=== PATIENT | male | born 1975 | race Caucasian/White ===

== ENCOUNTER 2018-11-20 12:14 | Inpatient (IN) | payer BC ==
[~2018-11-20] VITALS: Ht 167.6 cm; Wt 75.9 kg
[~2018-11-20 12:14] MED LIST: ALKA PO; IBUP-1982 PO
--- NOTE | 2018-11-20 14:04 | ERD ---
ER Documentation Chief Complaint Chief Complaint LOWER ABD PAIN X 1 DAY. SENT BY PCP HPI The patient is a 43-year-old male, presenting to the ER because of lower abdominal pain for the last 2 days, more the right than the left. He denies similar symptoms previously, denies fever, chills, neck pain, chest pain, dyspnea, vomiting, dysuria, diarrhea. He was seen in the clinic was sent him to the hospital. He does not smoke nor drink nor does illicit drug Past medical/surgical history: None ROS All systems reviewed and are negative except as per history of present illness. Medications Home Meds Reported Medications Aspirin ([place]us[place]) 1 Tab Tabef, 1 TAB PO DAILY, TAB 11/20/18 Ibuprofen* (Ibuprofen*) 200 Mg Capsule, 200 MG PO NEEDED, CAP 11/20/18 Allergies Allergies: Coded Allergies: No Known Drug Allergies (Verified Allergy, Unknown, 11/20/18) Physical Exam Vitals Vital Signs Date Temp Pulse Resp B/P (MAP) Pulse Ox O2 O2 Flow FiO2 Time Delivery Rate 11/20/18 88 18 106/79 100 Room Air 18:33 (88) 11/20/18 98.5 89 17 131/90 100 Room Air 16:05 (104) 11/20/18 98.5 89 16 137/91 97 12:28 (106) Physical Exam Const: No acute distress. Head: Atraumatic. Eyes: Normal Conjunctiva. ENT: Normal External Ears, Nose and Mouth. Neck: Full range of motion. No meningismus. Resp: Clear to auscultation bilaterally. Cardio: Regular rate and rhythm. Abd: Soft, non distended, normal bowel sounds, moderate RLQ abdominal/ rebound tenderness, no guarding no rigidity Skin: No petechiae or rashes. Back: No midline or flank tenderness. Ext: No cyanosis, or edema. Neur: Awake and alert. No focal deficit Psych: Normal Mood and Affect. Result Diagram: 11/20/18 1413 11/20/18 1413 Results 24 hrs Laboratory Tests Test 11/20/18 14:13 11/20/18 14:32 White Blood Count 11.9 10^3/ul Red Blood Count 5.93 10^6/ul Hemoglobin 16.3 g/dl Hematocrit 49.0 % Mean Corpuscular Volume 82.6 fl Mean Corpuscular Hemoglobin 27.5 pg Mean Corpuscular Hemoglobin Concent 33.3 g/dl Red Cell Distribution Width 12.9 % Platelet Count 209 10^3/UL Mean Platelet Volume 10.9 fl Immature Granulocytes % 0.300 % Neutrophils % 72.4 % Lymphocytes % 18.3 % Monocytes % 8.3 % Eosinophils % 0.4 % Basophils % 0.3 % Nucleated Red Blood Cells % 0.0 /100WBC Immature Granulocytes # 0.030 10^3/ul Neutrophils # 8.6 10^3/ul Lymphocytes # 2.2 10^3/ul Monocytes # 1.0 10^3/ul Eosinophils # 0.1 10^3/ul Basophils # 0.0 10^3/ul Nucleated Red Blood Cells # 0.0 10^3/ul Sodium Level 139 mmol/L Potassium Level 3.9 mmol/L Chloride Level 105 mmol/L Carbon Dioxide Level 26 mmol/L Anion Gap 8 Blood Urea Nitrogen 14 mg/dl Creatinine 0.79 mg/dl Est Glomerular Filtrat Rate mL/min > 60 mL/min Glucose Level 98 mg/dl Calcium Level 9.6 mg/dl Total Bilirubin 1.8 mg/dl Direct Bilirubin 0.00 mg/dl Indirect Bilirubin 1.8 mg/dl Aspartate Amino Transf (AST/SGOT) 25 IU/L Alanine Aminotransferase (ALT/SGPT) 31 IU/L Alkaline Phosphatase 80 IU/L Total Protein 8.3 g/dl Albumin 4.7 g/dl Globulin 3.60 g/dl Albumin/Globulin Ratio 1.30 Lipase 46 U/L Bedside Urine pH (LAB) 7.5 Bedside Urine Protein (LAB) Negative Bedside Urine Glucose (UA) Negative Bedside Urine Ketones (LAB) Negative Bedside Urine Blood Negative Bedside Urine Nitrite (LAB) Negative Bedside Urine Leukocyte Esterase (L Negative Current Medications Medications Dose Sig/Leanne Start Time Status Last (Trade) Ordered Route PRN Stop Time Admin Dose Reason Admin Sodium 1,000 ml @ Q1H STAT 11/20/18 DC 11/20/18 Chloride 1,000 mls/hr IV 14:08 14:35 11/20/18 15:07 Ketorolac 30 mg ONCE STAT 11/20/18 DC 11/20/18 Tromethamine IV 14:08 14:35 (Toradol) 11/20/18 14:09 Piperacillin 100 ml @ ONCE ONCE 11/20/18 DC 8/12/19 Sod/ 200 mls/hr IVPB 15:00 15:15 Tazobactam 11/20/18 15:29 Sod Sodium 1,000 ml @ Q10H IV 11/20/18 11/20/18 Chloride 100 mls/hr 16:06 17:41 IV Flush 3 ml PER 11/20/18 (NS 3 ml) PROTOCOL IV 16:30 Ondansetron 4 mg Q6H PRN 11/20/18 HCl (Zofran IV 16:30 Inj) NAUSEA/VOMITI NG 650 mg Q6H PRN 11/20/18 Acetaminophen PO .PAIN 1-3 16:30 (Tylenol OR TEMP Tab) 1 tab Q6H PRN 11/20/18 Acetaminophen PO .MOD PAIN 16:30 / 4-6 Hydrocodone Bitart ([place] (5/325)) Morphine 2 mg Q4H PRN 11/20/18 Sulfate IV .SEVERE 16:30 (morphine) PAIN 7-10 Zolpidem 5 mg QHS PRN 11/20/18 Tartrate PO .INSOMNIA 16:30 (Ambien) Piperacillin 100 ml @ Q6H IVPB 11/20/18 Sod/ 200 mls/hr 21:00 Tazobactam Sod Procedures/[place] [id number] Radiology Main Line: [phone] DIAGNOSTIC IMAGING REPORT Patient: PEGGY MCKEE : 1975 Age: 43 Sex: M MR #: [id number] DOS: 11/20/18 1408 Ordering MD: DANIEL CHANDRA MD Location: E/R Room/Bed: PROCEDURE: CT abdomen and pelvis without contrast. CLINICAL INDICATION: Abdominal pain TECHNIQUE: CT scan of the abdomen and pelvis without contrast was performed on the [employer] volumetric [address] scanner at [facility]. The patient was scanned without intravenous contrast. 3-D coronal reformatted images were obtained from the axial source images. CTDI: 7.8 mGy DLP: 441 mGy-cm DICOM images are available. One or more of the following dose reduction techniques were utilized: 1.) Automated exposure control 2.) Adjustment of the mA +/- kV according to patient's size 3.) Use of iterative reconstruction technique. COMPARISON: None. FINDINGS: Limited evaluation of the lung bases are clear. No pleural effusion. The unenhanced liver, spleen, bilateral adrenal glands, pancreas, and gallbladder are normal-appearing. No biliary dilatation. The bilateral kidneys are normal-appearing without hydronephrosis or nephrolithiasis. The small large bowel are thin-walled and nondilated without evidence for obstruction. The appendix is enlarged and dilated with the moderate periappendiceal fat stranding consistent with acute uncomplicated appendicitis. No loculated fluid collections to suggest an abscess. No gross free air to suggest perforation. The urinary bladder is grossly normal. Abdominal aorta is normal in caliber without aneurysm. No suspicious osseous lesions. IMPRESSION: 1. Acute uncomplicated appendicitis. No abscess or free air. Above findings discussed with Dr. Daniel Chandra at approximately 03:00 p.m. on November 20, 2018. Physician Vincent Date Time Electronically viewed and signed by Julien Lopez Physician on 11/20/2018 15:01 ML/ CC: DANIEL CHANDRA MD [phone] MEDICAL MAKING DECISION: The patient is a 43-year-old male, presenting with acute appendicitis, treated with Toradol 30 mg IV for pain, 1 L normal saline for clinical dehydration, Zosyn IV for acute appendicitis with good response. The differential diagnoses considered include but are not limited to cholelithiasis, cholecystitis, choledocholithiasis, cholangitis, pancreatitis, hepatitis, gastritis, peptic ulcer disease, gastric ulcer, appendicitis, cystitis, diverticulitis, partial small bowel obstruction. Consultation: I notify the on-call surgeon Dr. Billingsley via [employer] at 3p Departure Diagnosis: Primary Impression: Appendicitis Comments I discussed the findings with the patient. I notified the patient with Dr. Reece at 3:20p via [employer], who was made aware of the lab, the treatment, the patient condition. The patient is admitted to [facility] Disclaimer: Inadvertent spelling and grammatical errors are likely due to EHR/dictation software use and do not reflect on the overall quality of patient care. Also, please note that the electronic time recorded on this note does not necessarily reflect the actual time of the patient encounter. DANIEL CHANDRA MD Nov 20, 2018 14:04
[2018-11-20] MEDS ORDERED: SOD CHLORIDE 0.9% 1,000 ML IV STA (14:08)
[2018-11-20] MEDS ORDERED: KETOROLAC 30 MG INJ IV STA (14:08)
[2018-11-20] MEDS ORDERED: PIPER-TAZO 3.375 GM IV (PMX) 100 ML IVPB ONE (15:00)
[2018-11-20] MEDS ORDERED: HYDROCODONE/APAP (5/325) TAB PO PRN (16:30)
[2018-11-20] MEDS ORDERED: ONDANSETRON 4 MG INJ IV PRN (16:30)
[2018-11-20] MEDS ORDERED: ZOLPIDEM 5 MG TAB PO PRN (16:30)
[2018-11-20] MEDS ORDERED: NACL 0.9% 3 ML SYG IV SCH (16:30)
[2018-11-20] MEDS ORDERED: morphine 2 MG INJ IV PRN (16:30)
--- NOTE | 2018-11-20 16:58 | HP ---
Date/Time of Note Date/Time of Note DATE: 11/20/18 TIME: 16:57 Assessment/Plan VTE Prophylaxis SCD applied (from Nsg): Yes Pharmacological prophylaxis: NA/contraindicated Pharm contraindication: surgical contra Lines/Catheters IV Catheter Type (from Nrs): Saline Lock Assessment/Plan Hospital Course 1. Acute appendicitis Surgery consultation obtained Zosyn IV N.p.o. Prophylaxis: SCDs Result Diagram: 11/20/18 1413 11/20/18 1413 Results 24hrs Laboratory Tests Test 11/20/18 14:13 11/20/18 14:32 White Blood Count 11.9 H Red Blood Count 5.93 Hemoglobin 16.3 Hematocrit 49.0 Mean Corpuscular Volume 82.6 Mean Corpuscular Hemoglobin 27.5 L Mean Corpuscular Hemoglobin Concent 33.3 Red Cell Distribution Width 12.9 Platelet Count 209 Mean Platelet Volume 10.9 H Immature Granulocytes % 0.300 Neutrophils % 72.4 Lymphocytes % 18.3 Monocytes % 8.3 Eosinophils % 0.4 Basophils % 0.3 Nucleated Red Blood Cells % 0.0 Immature Granulocytes # 0.030 Neutrophils # 8.6 H Lymphocytes # 2.2 Monocytes # 1.0 H Eosinophils # 0.1 Basophils # 0.0 Nucleated Red Blood Cells # 0.0 Sodium Level 139 Potassium Level 3.9 Chloride Level 105 Carbon Dioxide Level 26 Anion Gap 8 Blood Urea Nitrogen 14 Creatinine 0.79 Est Glomerular Filtrat Rate mL/min > 60 Glucose Level 98 Calcium Level 9.6 Total Bilirubin 1.8 H Direct Bilirubin 0.00 Indirect Bilirubin 1.8 H Aspartate Amino Transf (AST/SGOT) 25 Alanine Aminotransferase (ALT/SGPT) 31 Alkaline Phosphatase 80 Total Protein 8.3 H Albumin 4.7 Globulin 3.60 H Albumin/Globulin Ratio 1.30 Lipase 46 Bedside Urine pH (LAB) 7.5 Bedside Urine Protein (LAB) Negative Bedside Urine Glucose (UA) Negative Bedside Urine Ketones (LAB) Negative Bedside Urine Blood Negative Bedside Urine Nitrite (LAB) Negative Bedside Urine Leukocyte Esterase (L Negative HPI/ROS Admit Date/Time Admit Date/Time November 20, 2018 Hx of Present Illness Patient is a 43-year-old male with no medical history presents with right lower quadrant abdominal pain for the past 2 days. In the ER CT abdomen showed acute appendicitis. ROS Constitutional: no complaints, improved Eyes: no complaints ENT: no complaints Respiratory: no complaints Cardiovascular: no complaints Gastrointestinal: pain Genitourinary: no complaints Musculoskeletal: no complaints Skin: no complaints Neurologic: no complaints Endocrine: no complaints Lymphatic: no complaints Psychological: no complaints, nl mood/affect Immunologic: no complaints PMH/Family/Social Past Medical History Medical History: no pertinent history Medications Current Medications Sodium Chloride 1,000 ml @ 100 mls/hr Q10H IV ; Start 11/20/18 at 16:06 IV Flush (NS 3 ml) 3 ml PER PROTOCOL IV ; Start 11/20/18 at 16:30 Ondansetron HCl (Zofran Inj) 4 mg Q6H PRN IV NAUSEA/VOMITING; Start 11/20/18 at 16:30 Acetaminophen (Tylenol Tab) 650 mg Q6H PRN PO .PAIN 1-3 OR TEMP; Start 11/20/18 at 16:30 Acetaminophen/ Hydrocodone Bitart ([place] (5/325)) 1 tab Q6H PRN PO .MOD PAIN 4- 6; Start 11/20/18 at 16:30 Morphine Sulfate (morphine) 2 mg Q4H PRN IV .SEVERE PAIN 7-10; Start 11/20/18 at 16:30 Zolpidem Tartrate (Ambien) 5 mg QHS PRN PO .INSOMNIA; Start 11/20/18 at 16:30 Piperacillin Sod/ Tazobactam Sod 100 ml @ 200 mls/hr Q6H IVPB ; Start 11/20/18 at 21:00 Coded Allergies: No Known Drug Allergies (Verified Allergy, Unknown, 11/20/18) Past Surgical History Past Surgical Hx: no surgical history Family History Significant Family History: no pertinent family hx Social History Alcohol Use: rarely Smoking Status: Never smoker Drug Use: none Exam/Review of Systems Vital Signs Vitals Vital Signs Date Temp Pulse Resp B/P (MAP) Pulse Ox O2 O2 Flow FiO2 Time Delivery Rate 11/20/18 98.5 89 17 131/90 100 Room Air 16:05 (104) Exam Constitutional: alert, oriented Respiratory: clear to auscultation Cardiovascular: regular rate and rhythm Gastrointestinal: soft; No distended Musculoskeletal: nl extremities to inspection LINUS GOODSON Nov 20, 2018 16:58
[2018-11-20] MEDS: SOD CHLORIDE 0.9% 1,000 ML IV SCH (17:41)
[2018-11-20 20:30] VITALS: BP 126/84; PULSE 82; RESP 19
[2018-11-20 21:38] VITALS: Ht 167.6 cm; Wt 75.9 kg
[2018-11-20] MEDS: PIPER-TAZO 3.375 GM IV (PMX) 100 ML IVPB SCH (21:54)
[2018-11-21] VITALS (13 sets, daily range): BP systolic 109–155; BP diastolic 62–86; PULSE 78–126; RESP 11–21
[2018-11-21] MEDS: SOD CHLORIDE 0.9% 1,000 ML IV SCH ×4 (02:02→17:15)
[2018-11-21] MEDS: PIPER-TAZO 3.375 GM IV (PMX) 100 ML IVPB SCH ×4 (02:05→20:28)
--- NOTE | 2018-11-21 09:53 | CONS ---
Assessment/Plan Assessment/Plan Hospital Course (Demo Recall) 1. Appendicitis: -Discussed surgical options versus conservative treatment with patient, at this time awaiting patient decision -N.p.o. -IV antibiotics 2. Abdominal pain: -Pain management: -As above 3. Leukocytosis: Resolved -Monitor 4. Hyperbilirubinemia: Mostly indirect -Trend 5. Overweight BMI: 27 -diet and exercise optimization -encourage weight loss Thank you. Patient seen and examined in collaboration with Dr. Amarjit Billingsley. Consultation Date/Type/Reason Admit Date/Time November 20, 2018 Date of Consultation: Nov 21, 2018 Type of Consult Surgical Reason for Consultation abdominal pain, appendicitis Requesting Provider: LINUS GOODSON Date/Time of Note DATE: 11/21/18 TIME: 09:39 Hx of Present Illness Mike Abdi is a 43 yo man who presented to the ED with complaints of abdominal pain. Abdominal pain began on Tuesday predominantly in the right lower quadrant. Pain initially began as mild but eventually increased in strength until he sought help in the ED. No associated fevers, chills, congested cough, chest pain, palpitations, shortness of breath, nausea, vomiting, change in bowel or bladder habits, dysuria, skin changes. CT of the abdomen was obtained noting enlarged and dilated appendix with moderate periappendiceal fat stranding consistent with acute uncomplicated appendicitis. Laboratory findings significant for mild leukocytosis, now resolved. General surgery was asked to evaluate. 12 point ros was performed and is negative except as stated in hpi. Past Medical History overweight Home Meds Reported Medications Aspirin (Alexus[place]) 1 Tab Tabef, 1 TAB PO DAILY, TAB 11/20/18 Ibuprofen* (Ibuprofen*) 200 Mg Capsule, 200 MG PO NEEDED, CAP 11/20/18 Medications Current Medications Sodium Chloride 1,000 ml @ 100 mls/hr Q10H IV Last administered on 11/21/18at 02:31; Admin Dose 100 MLS/HR; Start 11/20/18 at 16:06 IV Flush (NS 3 ml) 3 ml PER PROTOCOL IV ; Start 11/20/18 at 16:30 Ondansetron HCl (Zofran Inj) 4 mg Q6H PRN IV NAUSEA/VOMITING; Start 11/20/18 at 16:30 Acetaminophen (Tylenol Tab) 650 mg Q6H PRN PO .PAIN 1-3 OR TEMP; Start 11/20/18 at 16:30 Acetaminophen/ Hydrocodone Bitart ([place] (5/325)) 1 tab Q6H PRN PO .MOD PAIN 4- 6; Start 11/20/18 at 16:30 Morphine Sulfate (morphine) 2 mg Q4H PRN IV .SEVERE PAIN 7-10; Start 11/20/18 at 16:30 Zolpidem Tartrate (Ambien) 5 mg QHS PRN PO .INSOMNIA; Start 11/20/18 at 16:30 Piperacillin Sod/ Tazobactam Sod 100 ml @ 200 mls/hr Q6H IVPB Last administered on 11/21/18at 09:37; Admin Dose 200 MLS/HR; Start 11/20/18 at 21:00 Allergies: Coded Allergies: No Known Drug Allergies (Verified Allergy, Unknown, 11/20/18) Past Surgical History Past Surgical Hx: no surgical history Family History Significant Family History: no pertinent family hx Social History Alcohol Use: rarely Smoking Status: Never smoker Drug Use: none Exam/Review of Systems Exam Vitals Vital Signs Date Temp Pulse Resp B/P (MAP) Pulse Ox O2 O2 Flow FiO2 Time Delivery Rate 11/21/18 98.0 78 17 113/62 96 09:24 (79) 11/20/18 Room Air 20:09 Intake and Output 11/20/18 11/20/18 11/21/18 1515:00 23:00 07:00 IntakeIntake Total 100 ml 1350 ml BalanceBalance 100 ml 1350 ml Constitutional: alert, oriented Psych: nl mood/affect; No anxiety Head: normocephalic, atraumatic Eyes: nl conjunctiva, EOMI, nl lids, nl sclera ENMT: nl external ears & nose, nl lips & teeth, mucosa pink and moist Neck: supple, non-tender Respiratory: normal air movement; No congested cough Cardiovascular: regular rate and rhythm, nl pulses Gastrointestinal: soft, tender (Minimal right lower quadrant); No distended Musculoskeletal: nl extremities to inspection, nl gait and stance Extremities: normal pulses Neurological: nl mental status, nl speech, nl strength Skin: nl turgor; No rash or lesions Lymph: nl lymph nodes Results Result Diagram: 11/21/18 0556 11/21/18 0556 Results 24hrs Laboratory Tests Test 11/20/18 14:13 11/20/18 14:32 11/21/18 05:56 White Blood Count 11.9 H 9.1 # Red Blood Count 5.93 5.36 Hemoglobin 16.3 15.0 Hematocrit 49.0 45.0 Mean Corpuscular Volume 82.6 84.0 Mean Corpuscular Hemoglobin 27.5 L 28.0 L Mean Corpuscular Hemoglobin Concent 33.3 33.3 Red Cell Distribution Width 12.9 12.8 Platelet Count 209 194 Mean Platelet Volume 10.9 H 11.3 H Immature Granulocytes % 0.300 0.200 Neutrophils % 72.4 63.5 Lymphocytes % 18.3 24.9 Monocytes % 8.3 9.8 Eosinophils % 0.4 1.2 Basophils % 0.3 0.4 Nucleated Red Blood Cells % 0.0 0.0 Immature Granulocytes # 0.030 0.020 Neutrophils # 8.6 H 5.8 Lymphocytes # 2.2 2.3 Monocytes # 1.0 H 0.9 Eosinophils # 0.1 0.1 Basophils # 0.0 0.0 Nucleated Red Blood Cells # 0.0 0.0 Sodium Level 139 139 Potassium Level 3.9 4.1 Chloride Level 105 108 Carbon Dioxide Level 26 22 Anion Gap 8 9 Blood Urea Nitrogen 14 17 Creatinine 0.79 1.00 Est Glomerular Filtrat Rate mL/min > 60 > 60 Glucose Level 98 76 Calcium Level 9.6 8.9 Total Bilirubin 1.8 H Direct Bilirubin 0.00 Indirect Bilirubin 1.8 H Aspartate Amino Transf (AST/SGOT) 25 Alanine Aminotransferase (ALT/SGPT) 31 Alkaline Phosphatase 80 Total Protein 8.3 H Albumin 4.7 Globulin 3.60 H Albumin/Globulin Ratio 1.30 Lipase 46 Bedside Urine pH (LAB) 7.5 Bedside Urine Protein (LAB) Negative Bedside Urine Glucose (UA) Negative Bedside Urine Ketones (LAB) Negative Bedside Urine Blood Negative Bedside Urine Nitrite (LAB) Negative Bedside Urine Leukocyte Esterase (L Negative Hemoglobin A1c 5.3 Phosphorus Level 3.0 Magnesium Level 2.0 Medications Medication Current Medications Sodium Chloride 1,000 ml @ 100 mls/hr Q10H IV Last administered on 11/21/18at 02:31; Admin Dose 100 MLS/HR; Start 11/20/18 at 16:06 IV Flush (NS 3 ml) 3 ml PER PROTOCOL IV ; Start 11/20/18 at 16:30 Ondansetron HCl (Zofran Inj) 4 mg Q6H PRN IV NAUSEA/VOMITING; Start 11/20/18 at 16:30 Acetaminophen (Tylenol Tab) 650 mg Q6H PRN PO .PAIN 1-3 OR TEMP; Start 11/20/18 at 16:30 Acetaminophen/ Hydrocodone Bitart ([place] (5/325)) 1 tab Q6H PRN PO .MOD PAIN 4- 6; Start 11/20/18 at 16:30 Morphine Sulfate (morphine) 2 mg Q4H PRN IV .SEVERE PAIN 7-10; Start 11/20/18 at 16:30 Zolpidem Tartrate (Ambien) 5 mg QHS PRN PO .INSOMNIA; Start 11/20/18 at 16:30 Piperacillin Sod/ Tazobactam Sod 100 ml @ 200 mls/hr Q6H IVPB Last administered on 11/21/18at 09:37; Admin Dose 200 MLS/HR; Start 11/20/18 at 21:00 CHRIS ORDONEZ NP Nov 21, 2018 09:50
--- NOTE | 2018-11-21 12:23 | PREAC ---
Date/Time of Note Date/Time of Note DATE: 11/21/18 TIME: 12:22 Anesthesia Eval and Record Evaluation Time Pre-Procedure Interview DATE: 11/21/18 TIME: 12:22 Age 43 Sex male NPO: 8 hrs Preoperative diagnosis appendicitis Planned procedure lap appy Past Medical History Past Medical History: Includes Cardio: Dyslipidemia Surgery & Anesthesia Issues No known issue Meds Anticoagulation: No Beta Alannah within 24 hr: No Reason Beta Alannah not given: Pt. not on B-Alannah Reported Medications Aspirin (Alexus-[place]) 1 Tab Tabef, 1 TAB PO DAILY, TAB 11/20/18 Ibuprofen* (Ibuprofen*) 200 Mg Capsule, 200 MG PO NEEDED, CAP 11/20/18 Current Medications Sodium Chloride 1,000 ml @ 100 mls/hr Q10H IV Last administered on 11/21/18at 02:31; Admin Dose 100 MLS/HR; Start 11/20/18 at 16:06 IV Flush (NS 3 ml) 3 ml PER PROTOCOL IV ; Start 11/20/18 at 16:30 Ondansetron HCl (Zofran Inj) 4 mg Q6H PRN IV NAUSEA/VOMITING; Start 11/20/18 at 16:30 Acetaminophen (Tylenol Tab) 650 mg Q6H PRN PO .PAIN 1-3 OR TEMP; Start 11/20/18 at 16:30 Acetaminophen/ Hydrocodone Bitart ([place] (5/325)) 1 tab Q6H PRN PO .MOD PAIN 4- 6; Start 11/20/18 at 16:30 Morphine Sulfate (morphine) 2 mg Q4H PRN IV .SEVERE PAIN 7-10; Start 11/20/18 at 16:30 Zolpidem Tartrate (Ambien) 5 mg QHS PRN PO .INSOMNIA; Start 11/20/18 at 16:30 Piperacillin Sod/ Tazobactam Sod 100 ml @ 200 mls/hr Q6H IVPB Last administered on 11/21/18at 09:37; Admin Dose 200 MLS/HR; Start 11/20/18 at 21:00 Meds reviewed: Yes Allergies Coded Allergies: No Known Drug Allergies (Verified Allergy, Unknown, 11/20/18) Allergies Reviewed: Yes Labs/Studies Labs Reviewed: Reviewed by anesthesiologist Result Diagram: 11/21/18 0556 11/21/18 0556 Laboratory Tests 11/21/18 05:56 test: N/A Pre-procedure Exam Last vitals Vital Signs Date Temp Pulse Resp B/P (MAP) Pulse Ox O2 O2 Flow FiO2 Time Delivery Rate 11/21/18 98.0 78 17 113/62 96 09:24 (79) 11/20/18 Room Air 20:09 Airway: Adequate mouth opening, Adequate thyromental dist Mallampati: Mallampati I Teeth: Normal Lung: Normal Heart: Normal ASA Physical Status ASA physical status: 2 Emergency: E Planned Anesthetic General/MAC: ETT Nerve block: TAP (bilateral) Pre-operative Attestations Prior to commencing anesthesia and surgery, the patient was re-evaluated, there was verification of: *The patient's identity *The results of appropriate recent lab work and preoperative vital signs *The above evaluation not changing prior to induction *Anesthetic plan, risk benefits, alternative and complications discussed with patient/family; questions answered; patient/family understands, accepts and wishes to proceed. SEAN CAVANAUGH CRNA Nov 21, 2018 12:23
[2018-11-21] MEDS ORDERED: LIDOCAINE 1% (MPF) 30 ML INJ ONE (15:08)
[2018-11-21] MEDS ORDERED: BUPIVACAINE 0.25%/EPI (SDV) 10 ML INJ ONE (15:08)
[2018-11-21] MEDS ORDERED: CEFAZOLIN 1 GM INJ ONE (15:20)
[2018-11-21] MEDS ORDERED: DESFLURANE 15 MIN ONE (15:20)
[2018-11-21] MEDS ORDERED: ROCURONIUM 50 MG INJ ONE (15:23)
[2018-11-21] MEDS ORDERED: PROPOFOL 20 ML ONE (15:23)
[2018-11-21] MEDS ORDERED: HYDROmorphONE 2 MG/ML SYG ONE (15:24)
--- NOTE | 2018-11-21 15:39 | PN ---
Date/Time of Note Date/Time of Note DATE: 11/21/18 TIME: 15:39 Assessment/Plan VTE Prophylaxis Risk score (from Ns)>0 risk: 3 SCD applied (from Ns): Yes Pharmacological prophylaxis: NA/contraindicated Pharm contraindication: surgical contra Lines/Catheters IV Catheter Type (from [facility]): Peripheral IV Assessment/Plan Hospital Course 1. Acute appendicitis Surgery consultation appreciated, surgery planned for today Zosyn IV N.p.o. Prophylaxis: SCDs DC planning: Anticipate DC home tomorrow Result Diagram: 11/21/18 0556 11/21/18 0556 Results 24hrs Laboratory Tests Test 11/21/18 05:56 White Blood Count 9.1 # Red Blood Count 5.36 Hemoglobin 15.0 Hematocrit 45.0 Mean Corpuscular Volume 84.0 Mean Corpuscular Hemoglobin 28.0 L Mean Corpuscular Hemoglobin Concent 33.3 Red Cell Distribution Width 12.8 Platelet Count 194 Mean Platelet Volume 11.3 H Immature Granulocytes % 0.200 Neutrophils % 63.5 Lymphocytes % 24.9 Monocytes % 9.8 Eosinophils % 1.2 Basophils % 0.4 Nucleated Red Blood Cells % 0.0 Immature Granulocytes # 0.020 Neutrophils # 5.8 Lymphocytes # 2.3 Monocytes # 0.9 Eosinophils # 0.1 Basophils # 0.0 Nucleated Red Blood Cells # 0.0 Sodium Level 139 Potassium Level 4.1 Chloride Level 108 Carbon Dioxide Level 22 Anion Gap 9 Blood Urea Nitrogen 17 Creatinine 1.00 Est Glomerular Filtrat Rate mL/min > 60 Glucose Level 76 Hemoglobin A1c 5.3 Calcium Level 8.9 Phosphorus Level 3.0 Magnesium Level 2.0 Subjective 24 Hr Interval Summary Gastrointestinal: pain Exam/Review of Systems Exam Vitals Vital Signs Date Temp Pulse Resp B/P (MAP) Pulse Ox O2 O2 Flow FiO2 Time Delivery Rate 11/21/18 98.0 78 17 113/62 96 09:24 (79) 11/20/18 Room Air 20:09 Intake and Output 11/20/18 11/20/18 11/21/18 1515:00 23:00 07:00 IntakeIntake Total 100 ml 1350 ml BalanceBalance 100 ml 1350 ml Constitutional: alert, oriented Respiratory: clear to auscultation Cardiovascular: regular rate and rhythm Gastrointestinal: soft; No distended Musculoskeletal: nl extremities to inspection Results Results 24hrs Laboratory Tests Test 11/21/18 05:56 White Blood Count 9.1 # Red Blood Count 5.36 Hemoglobin 15.0 Hematocrit 45.0 Mean Corpuscular Volume 84.0 Mean Corpuscular Hemoglobin 28.0 L Mean Corpuscular Hemoglobin Concent 33.3 Red Cell Distribution Width 12.8 Platelet Count 194 Mean Platelet Volume 11.3 H Immature Granulocytes % 0.200 Neutrophils % 63.5 Lymphocytes % 24.9 Monocytes % 9.8 Eosinophils % 1.2 Basophils % 0.4 Nucleated Red Blood Cells % 0.0 Immature Granulocytes # 0.020 Neutrophils # 5.8 Lymphocytes # 2.3 Monocytes # 0.9 Eosinophils # 0.1 Basophils # 0.0 Nucleated Red Blood Cells # 0.0 Sodium Level 139 Potassium Level 4.1 Chloride Level 108 Carbon Dioxide Level 22 Anion Gap 9 Blood Urea Nitrogen 17 Creatinine 1.00 Est Glomerular Filtrat Rate mL/min > 60 Glucose Level 76 Hemoglobin A1c 5.3 Calcium Level 8.9 Phosphorus Level 3.0 Magnesium Level 2.0 Medications Medication Current Medications Sodium Chloride 1,000 ml @ 100 mls/hr Q10H IV Last administered on 11/21/18at 02:31; Admin Dose 100 MLS/HR; Start 11/20/18 at 16:06 IV Flush (NS 3 ml) 3 ml PER PROTOCOL IV ; Start 11/20/18 at 16:30 Ondansetron HCl (Zofran Inj) 4 mg Q6H PRN IV NAUSEA/VOMITING; Start 11/20/18 at 16:30 Acetaminophen (Tylenol Tab) 650 mg Q6H PRN PO .PAIN 1-3 OR TEMP; Start 11/20/18 at 16:30 Acetaminophen/ Hydrocodone Bitart (Hindman (5/325)) 1 tab Q6H PRN PO .MOD PAIN 4- 6; Start 11/20/18 at 16:30 Morphine Sulfate (morphine) 2 mg Q4H PRN IV .SEVERE PAIN 7-10; Start 11/20/18 at 16:30 Zolpidem Tartrate (Ambien) 5 mg QHS PRN PO .INSOMNIA; Start 11/20/18 at 16:30 Piperacillin Sod/ Tazobactam Sod 100 ml @ 200 mls/hr Q6H IVPB Last administered on 11/21/18at 09:37; Admin Dose 200 MLS/HR; Start 11/20/18 at 21:00 LINUS GOODSON Nov 21, 2018 15:39
[2018-11-21] MEDS ORDERED: SUGAMMADEX SODIUM 200 MG/2 ML VIAL IV ONE (15:55)
--- NOTE | 2018-11-21 16:09 | OPR ---
Date/Time of Note Date/Time of Note DATE: 11/21/18 TIME: 16:05 Operative Report Free Text/Dictation Preoperative Diagnosis 1. Acute appendicitis Postoperative Diagnosis 1. Acute appendicitis 2. Small ventral hernia 3. Bilateral inguinal hernias Operation Performed 1. Laparoscopic appendectomy 2. Ventral herniorrhaphy, primarily with suture 3. Local anesthetic [place], [id number] 4. Laparoscopic guided bilateral transversus abdominis plane block Surgeon: TOÑA MCNALLY MD Anesthesia: general (Plus local plus regional) Anesthesiologist: Dr. Sung Estimated Blood Loss: Less than 10 ml's Specimens: Appendix Tubes/Drains None Complications: None Pt Condition Post Procedure: stable Disposition: PACU Indications: Per consult note. Risks include but are not limited to bleeding, infection, abscess, seroma, leak, damage to intestines or any intra-abdominal/intrapelvic structures, hernia formation, chronic pain, need for re-operations or further surgeries, KS, stroke, PE, DVT, pneumonia, organ failures, or even . Procedure Note: Patient was brought into the operating room, placed supine on the operating table, SCDs were placed, left arm was tucked, all pressure points were well- padded, preoperative antibiotics administered, and after induction of anesthesia, patient was prepped and draped in usual sterile fashion, and timeout was performed. Incision was made supraumbilically and a ventral hernia was identified. Through the ventral hernia abdomen was entered bluntly and 12 mm port was placed. Abdomen was insufflated to 15 mmHg with CO2. Laparoscopy was performed and no injuries were identified using a 5 mm 30 scope. Under direct visualization another 5 mm port was placed and left lower quadrant and 5 mm port and suprapubic region avoiding the bladder. All incision sites were injected with quarter percent Marcaine with 1% lidocaine with epi. Bilateral transversus abdominis plane block was performed under laparoscopic visualization to aid with pain control intra-and postoperatively. Patient was placed in Trendelenburg and right side up. The appendix was found to be inflamed with a possible lesion towards the tip. The base was transected using Endo LAKEISHA white load automatic 35 mm stapler just on the cecum. The miguel were fired fully. The mesoappendix was transected with another white load stapler. Hemostasis was fully obtained. The appendix was placed in an Endo Catch bag and removed through the suprapubic port site. That fascia of the ventral hernia was closed with Endo Close and 0 Vicryl in a [id number] manner. Ports and CO2 were removed under direct visualization, wounds were fully irrigated, and skin was closed in subcuticular fashion using 4-0 Monocryl. Dermabond was applied. All counts were correct and the end of the operation 2. Patient was extubated and transferred to recovery room in stable condition. TOÑA MCNALLY MD Nov 21, 2018 16:09
--- NOTE | 2018-11-21 16:17 | PAC ---
Date/Time of Note Date/Time of Note DATE: 11/21/18 TIME: 16:17 Post-Anesthesia Notes Post-Anesthesia Note Last documented vital signs Vital Signs Date Temp Pulse Resp B/P (MAP) Pulse Ox O2 O2 Flow FiO2 Time Delivery Rate 11/21/18 98.0 78 17 113/62 96 09:24 (79) 11/20/18 Room Air 20:09 Activity: WNL Respiratory function: WNL Cardiovascular function: WNL Mental status: Baseline Pain reasonably controlled: Yes Hydration appropriate: Yes Nausea/Vomiting absent: Yes VICKIE POLK MD Nov 21, 2018 16:17
[2018-11-21] MEDS ORDERED: FENTAnyl 50 MCG/ML VIAL IV PRN ×3 (16:30)
[2018-11-21] MEDS ORDERED: LABETALOL HCL 20MG INJ IV PRN (16:30)
[2018-11-21] MEDS ORDERED: DIPHENHYDRAMINE 50 MG INJ IV PRN (16:30)
[2018-11-21] MEDS ORDERED: IBUPROFEN 600 MG TAB PO PRN (16:30)
[2018-11-21] MEDS ORDERED: IPRATROPIUM (NEB) 0.5 MG/2.5 ML AMP HHN PRN (16:30)
[2018-11-21] MEDS ORDERED: ALBUTEROL 0.083% (NEB) 2.5 MG/3 ML AMP HHN PRN (16:30)
[2018-11-21] MEDS ORDERED: MEPERIDINE 25 MG INJ IV PRN (16:30)
[2018-11-21] MEDS ORDERED: ONDANSETRON 4 MG INJ IV PRN (16:30)
[2018-11-21] MEDS ORDERED: hydrALAzine 20 MG INJ IV PRN (16:30)
[2018-11-21] MEDS ORDERED: HYDROCODONE/APAP (5/325) TAB PO PRN (16:30)
[2018-11-21] MEDS ORDERED: HYDROmorphONE 1 MG/5 ML IV SYRINGE IV PRN ×3 (16:30)
[2018-11-21] MEDS ORDERED: ACETAMINOPHEN 325 MG TAB PO PRN (16:30)
[2018-11-21] MEDS ORDERED: EPHEDrine 25 MG/5 ML SYG IV PRN (16:30)
[2018-11-21] MEDS ORDERED: OXYCODONE/ACETAMINOPHEN (5/325) TAB PO PRN ×2 (16:30)
[2018-11-21] MEDS ORDERED: TRIMETHOBENZAMIDE 100 MG/ML VIAL IM PRN (16:30)
[2018-11-21] MEDS ORDERED: MIDAZOLAM 1 MG/ML 2 ML INJ IV PRN (16:30)
[2018-11-21] MEDS ORDERED: morphine 2 MG INJ IV PRN (16:30)
[2018-11-22 02:39] VITALS: BP 118/77; PULSE 78; RESP 16
[2018-11-22] MEDS: ACETAMINOPHEN 325 MG TAB PO PRN ×2 (02:43→11:47)
[2018-11-22] MEDS: SOD CHLORIDE 0.9% 1,000 ML IV SCH (02:43)
[2018-11-22] MEDS: PIPER-TAZO 3.375 GM IV (PMX) 100 ML IVPB SCH ×2 (02:48→09:12)
[2018-11-22 07:52] VITALS: BP 123/77; PULSE 77; RESP 19
--- NOTE | 2018-11-22 11:00 | PDOCDIS ---
Discharge Instructions CONDITION [id number] Patient Condition: [id number] Good HOME CARE INSTRUCTIONS: [id number] Diet Instructions: [id number] Regular ACTIVITY: [id number] Activity Restrictions: [id number] Slowly Increase Activity Avoid heavy lifting (X 4 WEEKS ) FOLLOW UP/APPOINTMENTS Follow-up Plan FOLLOW UP WITH YOUR PCP AND DR MARGARETTE MCNALLY IN 1-2 WEEKS LINUS GOODSON Nov 22, 2018 11:00
--- NOTE | 2018-11-22 13:06 | PN ---
Date/Time of Note Date/Time of Note DATE: 11/22/18 TIME: 13:03 Assessment/Plan Lines/Catheters IV Catheter Type (from Nrsg): Peripheral IV Assessment/Plan Chief Complaint/Hosp Course 1. Appendicitis: sp lap appendectomy and ventral hernia repair 11/21/18 -IS -ambulate -ice pack to abdominal wall -advance diet as tolerated -dc ok from surgical standpoint with fu in 2 weeks 2. Abdominal pain:improving -Pain management -As above 3. Leukocytosis: Resolved -Monitor 4. Hyperbilirubinemia: Mostly indirect -Trend 5. Overweight BMI: 27 -diet and exercise optimization -encourage weight loss 6. Bilateral inguinal hernia repair: -eventual surgical repair Thank you. Patient seen and examined in collaboration with Dr. Amarjit Billingsley. Subjective 24 Hr Interval Summary Feels well. No fevers, chills, sob, congested cough, cp, palpitations, foster, dizz iness, n/v/d/dysuria. Exam/Review of Systems Vital Signs Vitals Vital Signs Date Temp Pulse Resp B/P (MAP) Pulse Ox O2 O2 Flow FiO2 Time Delivery Rate 11/22/18 98.4 77 19 123/77 96 07:52 (92) 11/21/18 Room Air 17:12 Intake and Output 11/21/18 11/21/18 11/22/18 1515:00 23:00 07:00 IntakeIntake Total 850 ml 1020 ml 1100 ml OutputOutput Total 5 ml BalanceBalance 850 ml 1015 ml 1100 ml Exam Free Text/Dictation Constitutional: alert, oriented Psych: nl mood/affect; No anxiety Head: normocephalic, atraumatic Eyes: nl conjunctiva, EOMI, nl lids, nl sclera ENMT: nl external ears & nose, nl lips & teeth, mucosa pink and moist Neck: supple, non-tender Respiratory: normal air movement; No congested cough Cardiovascular: regular rate and rhythm, nl pulses Gastrointestinal: soft, tender (abhishek-incisional, incision sites dry without drainage/bruising); No distended Musculoskeletal: nl extremities to inspection, nl gait and stance Extremities: normal pulses Neurological: nl mental status, nl speech, nl strength Skin: nl turgor; No rash or lesions Lymph: nl lymph nodes Results Result Diagram: 11/21/18 0556 11/21/18 0556 CHRIS ORDONEZ NP Nov 22, 2018 13:06
[2018-11-22 14:00] VITALS: BP 121/71; PULSE 83; RESP 17
--- NOTE | 2018-11-22 15:19 | DS ---
Date/Time of Note Date/Time of Note DATE: 11/22/18 TIME: 15:18 Discharge Summary Admission/Discharge Info Admit Date/Time Nov 20, 2018 at 15:22 Discharge Date/Time November 22, 2018 Discharge Diagnosis 1. Acute appendicitis Status post laparoscopic appendectomy Patient Condition: Good Hospital Course Patient is a 43-year-old male with no medical history presents with right lower quadrant abdominal pain for the past 2 days. In the ER CT abdomen showed acute appendicitis. Patient was taken to the OR for a lap appendectomy, patient was stable for DC on postop day 1. Home Meds Reported Medications Aspirin (Alexus-Mcgee) 1 Tab Tabef, 1 TAB PO DAILY, TAB 11/20/18 Ibuprofen* (Ibuprofen*) 200 Mg Capsule, 200 MG PO NEEDED, CAP 11/20/18 Follow-up Plan FOLLOW UP WITH YOUR PCP AND DR MARGARETTE MCNALLY IN 1-2 WEEKS Primary Care Provider Not On Staff Doctor Time spent on discharge: > 30 minutes LINUS GOODSON Nov 22, 2018 15:19
== END 2018-11-22 15:43 | disposition home or self-care (01) | DRG 343 ==
LOC: E/R 12:14 → PP2 15:22
PROVIDERS: ADMIT Internal Medicine; ATTEND Internal Medicine
PROC: 0WQF4ZZ Repair Abdominal Wall, Percutaneous Endoscopic Approach (ICD-10-PCS; 2018-11-21)
PROC: 0DTJ4ZZ Resection of Appendix, Percutaneous Endoscopic Approach (ICD-10-PCS; principal; 2018-11-21 13:30)
DX: K35.80 Unspecified acute appendicitis (principal); K43.9 Ventral hernia without obstruction or gangrene; E80.6 Other disorders of bilirubin metabolism; E66.3 Overweight; Z68.27 Body mass index [BMI] 27.0-27.9, adult; D72.829 Elevated white blood cell count, unspecified
CPT/HCPCS: 36415; 74176; 80048; 80053; 81003; 83036; 83690; 83735; 84100; 85025; 88304; 96374; 96375; J0690; J1170; J1885; J2543; J7030

== ENCOUNTER 2018-12-08 14:28 | Emergency (ER) | payer SELFPAY ==
[~2018-12-08 14:28] MED LIST changes: +CLIN300C10 PO
== END 2018-12-08 15:54 | disposition left against medical advice (07) ==
LOC: E/R 14:28
DX: Z53.21 Procedure and treatment not carried out due to patient leaving prior to being seen by health care provider (principal)